=== PATIENT | female | born 1980 | race Caucasian/White ===

== ENCOUNTER 2020-10-23 21:20 | Emergency (ER) | payer MEDICAID, SELFPAY ==
[~2020-10-23] VITALS: Ht 167.6 cm; Wt 130.1 kg
[2020-10-23 22:16] LABS: BASOPHILS % (AUTO) 1 % (0-1); EOSINOPHILS % (AUTO) 2 % (1-7); LYMPHOCYTES % (AUTO) 32 % (22-44); MD NO; MEAN CORPUSCULAR HEMOGLOBIN 30.5 pg (27.0-34.8); MEAN CORPUSCULAR HGB CONC 33.8 g/dL (32.4-35.8); MEAN PLATELET VOLUME 9.1 fL (7.4-10.4); MONOCYTES % (AUTO) 5 % (2-9); NEUTROPHILS % (AUTO) 60 % (42-75); PLATELET COUNT 281 x10^3/uL (130-400); RED BLOOD COUNT 4.55 x10^6/uL (3.82-5.3); RED CELL DISTRIBUTION WIDTH 13.7 % (9.6-15.2)
[2020-10-23 22:28] LABS: ALBUMIN 3.5 g/dL (3.4-5.0); ANION GAP 6 mmol/L (5-15); CALCIUM 8.5 mg/dL (8.5-10.1); CHLORIDE 113 mmol/L (98-107)
[2020-10-23 22:34] LABS: CREATININE 0.76 mg/dL (0.55-1.02)
[2020-10-23] MEDS ORDERED: ONDANSETRON ODT 4 MG ONE (23:24)
[2020-10-23] MEDS ORDERED: HYDROcodone/APAP 5/325 TABLET ONE (23:25)
[2020-10-23] MEDS ORDERED: HYDROcodone/APAP 5/325 TABLET PO ONE (23:30)
[2020-10-23] MEDS ORDERED: ONDANSETRON ODT 4 MG PO ONE (23:30)
[2020-10-23 23:49] LABS: MICROSCOPIC INDICATED
--- NOTE | 2020-10-24 00:29 | NUR ---
PT HAS C/O LOWER ABD PAIN WITH NAUSEA FOR THE LAST 2 DAYS. PT HAS FAMILY AT BEDSIDE. PT ON MONITOR WITH VSS. PT HAS UNLABORED EQUAL BREATHS
[2020-10-24] MEDS ORDERED: ONDANSETRON 2MG/ML, 2ML IVPush ONE (01:00)
[2020-10-24] MEDS ORDERED: ONDANSETRON 2MG/ML, 2ML ONE (01:06)
[2020-10-24] MEDS ORDERED: MORPHINE SULFATE 4 MG/ML, 1ML ONE ×2 (01:07→02:44)
[2020-10-24] MEDS: MORPHINE SULFATE 4 MG/ML, 1ML IVPush PRN ×2 (01:18→02:46)
[2020-10-24] MEDS ORDERED: OMNIPAQUE 350 MG/ML, 100ML BOTTLE ONE (02:00)
[2020-10-24] MEDS ORDERED: CEFDINIR 300 MG CAPSULE ONE (02:43)
[2020-10-24 02:46] VITALS: BP 144/48
[2020-10-24] MEDS ORDERED: CEFDINIR 300 MG CAPSULE PO ONE (03:00)
--- NOTE | 2020-10-24 03:06 | NUR ---
task rn: Patient/Caregiver given discharge instructions and they have confirmed that they understand the instructions. Patient ambulatory with steady gait. NAD, all questions answered appropriately, denies additional needs at this time. No personal belongings left in room after discharge.
== END 2020-10-24 03:08 | disposition home or self-care (01) ==
LOC: ED 21:50
DX: N30.01 Acute cystitis with hematuria (principal); N10 Acute pyelonephritis; Z76.0 Encounter for issue of repeat prescription; I10 Essential (primary) hypertension
CPT/HCPCS: 36415; 74177; 76830; 80048; 81001; 82040; 84703; 85025; 87086; 96374; 96375; 96376; 99285; J2270; J2405; Q0162; Q9967

== ENCOUNTER 2020-11-19 14:36 | Emergency (ER) | payer MEDICAID ==
[~2020-11-19] VITALS: Ht 170.2 cm; Wt 126.3 kg
[2020-11-19 15:12] LABS: MICROSCOPIC INDICATED
--- NOTE | 2020-11-19 16:21 | NUR ---
TO ROOM FROM LOBBY. NAD
[2020-11-19] MEDS ORDERED: SODIUM CHLORIDE 0.9% 1,000ML IVBOLUS ONE (17:00)
[2020-11-19] MEDS ORDERED: SODIUM CHLORIDE FLUSH 10ML SYR IVF ONE (17:00)
[2020-11-19] MEDS ORDERED: ONDANSETRON 2MG/ML, 2ML IVPush ONE (17:00)
[2020-11-19 17:37] LABS: BASOPHILS % (AUTO) 1 % (0-1); EOSINOPHILS % (AUTO) 1 % (1-7); LYMPHOCYTES % (AUTO) 23 % (22-44); MEAN CORPUSCULAR HEMOGLOBIN 30.7 pg (27.0-34.8); MEAN CORPUSCULAR HGB CONC 34.5 g/dL (32.4-35.8); MEAN PLATELET VOLUME 9.2 fL (7.4-10.4); MONOCYTES % (AUTO) 5 % (2-9); NEUTROPHILS % (AUTO) 71 % (42-75); PLATELET COUNT 296 x10^3/uL (130-400); RED BLOOD COUNT 4.82 x10^6/uL (3.82-5.3); RED CELL DISTRIBUTION WIDTH 13.5 % (9.6-15.2)
--- NOTE | 2020-11-19 17:38 | NUR ---
PT GOING TO IMAGING
[2020-11-19 17:48] LABS: ALBUMIN 3.7 g/dL (3.4-5.0); ANION GAP 6 mmol/L (5-15); CALCIUM 8.6 mg/dL (8.5-10.1); CHLORIDE 109 mmol/L (98-107)
[2020-11-19 17:55] LABS: ALANINE AMINOTRANSFERASE 29 U/L (12-78); ALKALINE PHOSPHATASE 111 U/L (45-117); BILIRUBIN,TOTAL 0.4 mg/dL (0.2-1.0); CREATININE 0.83 mg/dL (0.55-1.02); TOTAL PROTEIN 6.8 g/dL (6.4-8.2)
[2020-11-19] MEDS ORDERED: IBUPROFEN 600 MG TABLET ONE (18:03)
[2020-11-19] MEDS ORDERED: HYDROmorphone 1 MG/ML, 1ML INJ ONE ×2 (18:27→19:21)
[2020-11-19] MEDS ORDERED: ONDANSETRON 2MG/ML, 2ML ONE (18:27)
[2020-11-19] MEDS: HYDROmorphone 1 MG/ML, 1ML INJ IVPush PRN ×2 (18:34→19:25)
--- NOTE | 2020-11-19 18:50 | NUR ---
REPORT FROM ZEB MCLAUGHLIN
[2020-11-19 19:26] VITALS: BP 135/76
== END 2020-11-19 20:19 | disposition home or self-care (01) ==
LOC: ED 16:43
DX: N83.201 Unspecified ovarian cyst, right side (principal); N93.8 Other specified abnormal uterine and vaginal bleeding; I10 Essential (primary) hypertension
CPT/HCPCS: 36415; 76830; 80053; 81001; 84703; 85025; 87086; 93005; 96361; 96374; 96375; 96376; 99285; J1170; J2405; J7030